=== PATIENT | female | born 1985 | race Two or more races ===

== ENCOUNTER 2023-06-13 15:31 | Emergency (ER) | payer BC, OTHER ==
[~2023-06-13] VITALS: Ht 162.6 cm; Wt 81.6 kg
[2023-06-13 16:19] VITALS: BP 119/76; PULSE 92; TEMP 97.9
[2023-06-13] MEDS: IPRATROPIUM BROM 0.5 MG/2.5ML INH SOL NEB ONE (16:43)
[2023-06-13] MEDS: ALBUTEROL SULF 2.5 MG/0.5ML(0.5%) NEB SOLN NEB ONE (16:43)
[2023-06-13 16:44] VITALS: RESP 18; O2SAT 98
[2023-06-13] MEDS ORDERED: PROM1SOL4 PO (17:21)
[2023-06-13] MEDS ORDERED: PRED20TA2 PO (17:21)
[2023-06-13] MEDS ORDERED: LEVO500T91 PO (17:29)
== END 2023-06-13 17:44 | disposition home or self-care (01) ==
LOC: ER 15:31
DX: J20.9 Acute bronchitis, unspecified (principal); R91.8 Other nonspecific abnormal finding of lung field
CPT/HCPCS: 71046; 94640; 99283; J7644